=== PATIENT | female | born 1980 | race Caucasian/White ===

== ENCOUNTER 2016-10-06 11:26 | Emergency (ER) | payer OTHER | END 2016-10-06 12:20 | disposition home or self-care (01) | LOC: FER 11:26 | DX: K25.9 Gastric ulcer, unspecified as acute or chronic, without hemorrhage or perforation (principal); R19.7 Diarrhea, unspecified; Z90.49 Acquired absence of other specified parts of digestive tract; Z98.84 Bariatric surgery status; Z98.890 Other specified postprocedural states | CPT/HCPCS: J1170 ==